=== PATIENT | female | born 1945 | race Caucasian/White ===

== ENCOUNTER → 2016-11-07 | Outpatient (CLI) | payer MEDICARE, OTHER ==
--- NOTE | 2016-11-08 08:26 | CT ---
EXAM DESCRIPTION: CT THORACIC SPINE WITH IV CONTRAST; CT THORACIC SPINE WITHOUT IV CONTRAST CLINICAL HISTORY: 71 y/o F, BACK PAIN COMPARISON: August 23, 2007. TECHNIQUE: Prior to and after the administration of contrast thin slice axial images were acquired of the chest. The data was reconstructed for interpretation. FINDINGS: S-shaped scoliotic deformity of the thoracic spine noted. Vertebral body height and AP alignment are unremarkable. Intervertebral disc spaces are preserved. There is a posterior disc protrusion noted at T7-T8. This measures approximately 4 mm in the AP dimension. It decreases the AP diameter of the spinal canal to a mildly stenotic 8 mm. No additional posterior disc protrusions noted. No additional spinal canal narrowing or significant neural foraminal narrowing. Incidentally noted is an aneurysm of the ascending aorta. It measures 4.2 cm in the AP dimension. IMPRESSION: Posterior disk protrusion noted only at T7-T8 in which the AP diameter of spinal canal is reduced 8 mm. No additional spinal canal narrowing or neural foraminal narrowing at any level. S-shaped scoliotic deformity of the thoracic spine is noted. There is a 4.2 cm aneurysm of the ascending aorta. This has increased from 3.7 cm in August of 2007. Yearly followup is suggested. Electronically signed by: Siva Starkey MD 11/08/2016 08:24
== END ==
LOC: CT 13:49
PROVIDERS: ATTEND Family Medicine
DX: M51.24 Other intervertebral disc displacement, thoracic region (principal); M41.84 Other forms of scoliosis, thoracic region; I71.2 Thoracic aortic aneurysm, without rupture

== ENCOUNTER → 2016-12-13 | Outpatient (CLI) | payer MEDICARE, OTHER | END | disposition home or self-care (01) | LOC: GMAJ 16:54 | PROVIDERS: ATTEND Family Medicine | DX: R55 Syncope and collapse (principal) ==

== ENCOUNTER → 2016-12-14 | Outpatient (CLI) | payer MEDICARE, OTHER ==
--- NOTE | 2016-12-19 00:42 | CT ---
EXAM DESCRIPTION: Chest w/Contrast CLINICAL HISTORY: 71 years Female, THORACIC AORTIC ANEURYSM COMPARISON: May 26, 2008 TECHNIQUE: Post contrasted CT of the chest was performed. The data was reformatted for interpretation. FINDINGS: The ascending aorta measures 3.9 cm in diameter and is stable when compared to the prior study from 2007. It tapers to a normal diameter as it descends along the posterior mediastinum. Pacing device noted. Heart size is normal. No pericardial disease. No mediastinal lymphadenopathy. The pulmonary artery is not enlarged. No axillary or supraclavicular lymphadenopathy. The lungs demonstrate no concerning findings. No pleural disease Patient is status post cholecystectomy. No concerning upper abdominal findings noted. IMPRESSION: There is a 3.9 cm descending aortic aneurysm which has remained stable since prior study from May 26, 2008. Given its stability over the course of 8-9 years follow-up every 18 months-2 years is suggested. Coronary artery disease is noted. No additional findings. Electronically signed by: Siva Starkey MD 12/15/2016 9:08 AM SLEEP LAB TECHNICIAN
== END ==
LOC: CT 09:09
PROVIDERS: ATTEND Family Medicine
DX: I71.2 Thoracic aortic aneurysm, without rupture (principal); I25.10 Atherosclerotic heart disease of native coronary artery without angina pectoris

== ENCOUNTER → 2017-02-02 | Outpatient (CLI) | payer MEDICARE, OTHER | LOC: GMA 16:46 | PROVIDERS: ATTEND Nurse Practitioner Family | DX: N39.0 Urinary tract infection, site not specified (principal) ==

== ENCOUNTER → 2017-04-18 | Outpatient (CLI) | payer MEDICARE, OTHER | LOC: GMAJ 16:42 | PROVIDERS: ATTEND Family Medicine | DX: R55 Syncope and collapse (principal); R06.00 Dyspnea, unspecified; R41.82 Altered mental status, unspecified; I10 Essential (primary) hypertension; M81.0 Age-related osteoporosis without current pathological fracture ==

== ENCOUNTER → 2017-09-26 | Outpatient (CLI) | payer MEDICARE, OTHER | END | disposition home or self-care (01) | LOC: GMAJ 10:25 | PROVIDERS: ATTEND Family Medicine | DX: R55 Syncope and collapse (principal); R06.02 Shortness of breath ==

== ENCOUNTER → 2018-04-23 | Outpatient (CLI) | payer MEDICARE, OTHER | LOC: GMAJ 17:23 | PROVIDERS: ATTEND Family Medicine | DX: N30.00 Acute cystitis without hematuria (principal) ==

== ENCOUNTER → 2018-09-18 | Outpatient (CLI) | payer MEDICARE, OTHER | LOC: GMATM 17:20 | PROVIDERS: ATTEND Nurse Practitioner Family | DX: M79.10 Myalgia, unspecified site (principal); R53.83 Other fatigue ==

== ENCOUNTER → 2019-03-05 | Outpatient (CLI) | payer MEDICARE, OTHER ==
--- NOTE | 2019-03-06 13:21 | CT ---
EXAM DESCRIPTION: Chest w/Contrast CLINICAL HISTORY: PLEURISY COMPARISON: December 14, 2016 TECHNIQUE: Chest CT was performed with IV contrast. This exam was performed according to our departmental dose-optimization program, which includes automated exposure control, adjustment of the mA and/or kV according to patient size and/or use of iterative reconstruction technique. FINDINGS: Postoperative changes in the mediastinum. Dual lead cardiac pacemaker. Ascending thoracic aorta is at the upper limits of normal size, measuring 3.7 cm transverse diameter. No thoracic aortic aneurysm or dissection. The main pulmonary artery is not dilated. No mediastinal or hilar adenopathy. No pleural pericardial effusion. No esophageal wall thickening. The central airways are clear. No airspace consolidation or lung mass. No pleural thickening. The gallbladder is surgically absent. Diffuse fatty infiltration of the liver is suspected. Visualized portions of the upper abdomen are otherwise unremarkable. No fracture or pneumothorax. IMPRESSION: Negative exam. No pleural thickening, airspace consolidation, pleural effusion or additional abnormality to explain provided history of pleurisy. Upper normal caliber of the ascending thoracic aorta measuring up to 3.7 cm diameter, stable. Electronically signed by: Lucius Caldwell MD 03/06/2019 1:19 PM CDT
== END ==
LOC: CT 15:30
PROVIDERS: ATTEND Family Medicine
DX: R09.1 Pleurisy (principal); R19.7 Diarrhea, unspecified

== ENCOUNTER → 2019-08-28 | Outpatient (CLI) | payer MEDICARE, OTHER ==
--- NOTE | 2019-08-29 12:01 | CT ---
EXAM DESCRIPTION: Head CT without contrast CLINICAL HISTORY: HEADACHE COMPARISON: Previous CT head October 29, 2009 TECHNIQUE: Noncontrast head CT was performed with routine protocol. FINDINGS: Normal miller-white matter differentiation. Ventricles and sulci are prominent consistent with age-related cerebral volume loss. No high density hemorrhage, focal edema or shift of the midline. No sulcal effacement. Normal orbital contents. Basilar cisterns appear clear. Intact calvarium with no fracture or lytic lesion. Normal aeration of tympanic cavities and mastoid air cells. Fluid level in the right sphenoid sinus is likely inflammatory. Findings are consistent with mild sinusitis.. Skull base appears intact. Symmetrical internal auditory canals. IMPRESSION: No acute intracranial pathologic process. Fluid in the right sphenoid sinus, probably inflammatory. This exam was performed according to our departmental dose-optimization program, which includes automated exposure control, adjustment of the mA and/or kV according to patient size and/or use of iterative reconstruction technique. Total DLP equals 859.97 mGycm. Electronically signed by: Gunnar Hendrickson MD 08/29/2019 12:00 PM [facility]
== END ==
LOC: CT 16:13
PROVIDERS: ATTEND Family Medicine
DX: G43.119 Migraine with aura, intractable, without status migrainosus (principal); J34.89 Other specified disorders of nose and nasal sinuses

== ENCOUNTER → 2020-04-08 | Outpatient (CLI) | payer MEDICARE, OTHER | LOC: GMAJ 14:39 | PROVIDERS: ATTEND Family Medicine | DX: Z79.899 Other long term (current) drug therapy (principal) ==